=== PATIENT | female | born 1945 | race Caucasian/White ===

== ENCOUNTER 2018-04-04 10:42 | Emergency (ER) | payer MEDICARE ==
[2018-04-04 10:50] VITALS: BP 149/86
[2018-04-04 11:16] LABS: BILIRUBIN,URINE NEGATIVE (NEGATIVE); GLUCOSE, URINE (UA) NEGATIVE (NEGATIVE); KETONES,URINE (UA) NEGATIVE (NEGATIVE); LEUKOCYTE ESTERASE, URINE MODERATE (NEGATIVE); NITRITE,URINE NEGATIVE (NEGATIVE); OCCULT BLOOD,URINE LARGE (NEGATIVE); PROTEIN,URINE NEGATIVE (NEGATIVE); UROBILINOGEN,URINE 0.2 (NORMAL) E.U./dL (NORMAL)
[2018-04-04 11:17] LABS: CLARITY,URINE HAZY (CLEAR)
[2018-04-04 11:47] LABS: BACTERIA,URINE Few /HPF (None Seen); RBC,URINE 0-5 /HPF (0-5); SQUAMOUS EPITHELIAL CELL,UR FEW Squamous (<= Few)
--- NOTE | 2018-04-04 12:12 | ED Physician Documentation ---
PD HPI FEMALE - Stated complaint Stated Complaint: FEMALE - Chief complaint Chief Complaint: Abd Pain - History obtained from History obtained from: Patient - History of Present Illness Timing - onset: Yesterday Timing - details: Still present Associated symptoms: Back pain, Dysuria, Urinary frequency. No: Fever Similar symptoms before: Diagnosis (Recently treated for UTI), Treatment ( Finished a course of Cefuroxime five days ago.) - Additional information Additional information: The patient is a 72-year-old female who presents with dysuria and urgency of urination that started yesterday and has become worse today. She denies fever, abdominal pain, back pain, nausea or vomiting. She has a history of urinary tract infections, and finished a course of cefuroxime 5 days ago for UTI. She has history of multiple allergies to antibiotics, including ciprofloxacin, nitrofurantoin, and sulfa. Review of Systems Constitutional: denies: Fever Nose: denies: Congestion Throat: denies: Sore throat Cardiac: denies: Chest pain / pressure Respiratory: denies: Dyspnea, Cough GI: denies: Abdominal Pain, Nausea, Vomiting : reports: Dysuria, Frequency. denies: Hematuria, Discharge Skin: denies: Rash Musculoskeletal: denies: Back pain Neurologic: denies: Focal weakness, Numbness, Headache PD PAST MEDICAL HISTORY - Past Medical History Cardiovascular: Hypertension Endocrine/Autoimmune: HyPOthyroidism - Present Medications Home Medications: Ambulatory Orders Medication Instructions Recorded Confirmed ALPRAZolam [Alprazolam] 2 mg PO 04/04/18 Atenolol 100 mg PO 04/04/18 04/04/18 Beclomethasone Dipropionate [Qvar 10.6 gm IH 04/04/18 Redihaler] Cefpodoxime Proxetil 100 mg PO BID #14 tablet 04/04/18 Levothyroxine Sodium [Synthroid] 100 mcg PO 04/04/18 - Allergies Allergies/Adverse Reactions: Allergies Allergy/AdvReac Type Severity Reaction Status Date / Time bee venom protein (honey bee) Allergy Respiratory Verified 04/04/18 10:53 ciprofloxacin [From Cipro] Allergy Unknown Verified 04/04/18 10:53 nitrofurantoin Allergy Unknown Verified 04/04/18 10:52 Sulfa (Sulfonamide Allergy Edema Verified 04/04/18 10:51 Antibiotics) PD ED PE NORMAL - Vitals Vital signs reviewed: Yes (Mild hypertension initially.) - General General: Alert and oriented X 3, Well developed/nourished - HEENT HEENT: Atraumatic, Pharynx benign - Neck Neck: No adenopathy, No JVD - Cardiac Cardiac: RRR - Respiratory Respiratory: No respiratory distress, Clear bilaterally - Abdomen Abdomen: Soft, Non tender - Back Back: No CVA TTP - Derm Derm: No rash - Extremities Extremities: No edema, No calf tenderness / cord - Neuro Neuro: Alert and oriented X 3, No motor deficit, No sensory deficit Results - Vitals Vitals: Oxygen O2 Source Room air - Labs Labs: Microbiology 04/04/18 10:53 Urine Culture - Final Urine,Random 10-50,000 COLONIES/ML Polymicrobial growth including potential pathogens. This is suggestive of skin or other contamination. Laboratory Tests 04/04/18 10:53 Urine Color YELLOW Urine Clarity HAZY Urine pH 6.0 Ur Specific [place] <=1.005 Urine Protein NEGATIVE Urine Glucose (UA) NEGATIVE Urine Ketones NEGATIVE Urine Occult Blood LARGE H Urine Nitrite NEGATIVE Urine Bilirubin NEGATIVE Urine Urobilinogen 0.2 (NORMAL) Ur Leukocyte Esterase MODERATE H Urine RBC 0-5 Urine WBC >25 H Ur Squamous Epith Cells FEW Squamous Urine Bacteria Few Ur Microscopic Review INDICATED Urine Culture Comments INDICATED PD MEDICAL DECISION MAKING - ED course Complexity details: reviewed results, re-evaluated patient, considered differential, d/w patient ED course: The patient's presentation is most consistent with acute cystitis. Urinalysis is positive for leukocyte esterase, pyuria, and bacteriuria. Culture and sensitivity are pending. Her presentation does not suggest pyelonephritis or sepsis. Treatment in emergency department included administration of 500 mg orally. She is being discharged with prescription for cefpodoxime and Pyridium. I discussed with her the expected course of illness, antibiotic treatment and outpatient follow-up, as well as potentially worrisome signs or symptoms that should prompt reevaluation in the emergency department. - Sepsis Event Vital Signs: Oxygen O2 Source Room air Departure - Departure Disposition: 01 Home, Self Care Clinical Impression: Urinary tract infection Qualifiers: Urinary tract infection type: acute cystitis Hematuria presence: without hematuria Qualified Code(s): N30.00 - Acute cystitis without hematuria Condition: Stable Instructions: ED UTI Cystitis Female Prescriptions: Cefpodoxime Proxetil 100 mg PO BID #14 tablet Comments: Drink plenty of fluids, including cranberry juice. Take Cefpodoxime twice daily as prescribed. Follow up with your primary physician within 2 weeks. Call to schedule appointment. Return to the emergency department if you develop increasing abdominal pain, fever with shaking chills, persistent vomiting, or otherwise worsening symptoms. Discharge Date/Time: 04/04/18 12:21
[2018-04-04] MEDS: PHENAZOPYRIDINE 100 MG TABLET PO STA ×2 (12:14→12:17)
== END 2018-04-04 12:21 | disposition home or self-care (01) ==
LOC: ED 10:42
DX: N30.00 Acute cystitis without hematuria (principal); I10 Essential (primary) hypertension; E03.9 Hypothyroidism, unspecified
CPT/HCPCS: 81001; 87086; 99283; A9270; 81003

== ENCOUNTER 2018-04-10 10:07 | Emergency (ER) | payer MEDICARE ==
[2018-04-10 10:18] VITALS: BP 149/83
--- NOTE | 2018-04-10 10:25 | ED Physician Documentation ---
PD HPI FEMALE - Stated complaint Stated Complaint: FEMALE - Chief complaint Chief Complaint: General - History obtained from History obtained from: Patient - History of Present Illness Timing - onset: How many weeks ago (2) Timing - duration: Weeks (2) Timing - details: Gradual onset, Still present (she had UTI 2 weeks ago and Rx with cephalosporin. Did not fully improve and seen in ED. Given a different ceph. She states is still having dysuria c/w UTI. denies vaginal discharge.), Waxing and waning Associated symptoms: Dysuria, Urinary frequency. No: Fever, Back pain, Vaginal bleeding, Vaginal discharge Contributing factors: No: Exposed to STD Similar symptoms before: Diagnosis (UTI) Recently seen: Clinic (2 weeks ago in [place], with culture showing e.coli sensitive to most meds.), Emergency Dept (last week with UA showing some WBCs. Culture showed mixed sav.) Review of Systems Constitutional: denies: Fever, Chills, Myalgias Throat: denies: Sore throat Cardiac: denies: Chest pain / pressure Respiratory: denies: Dyspnea, Cough GI: reports: Nausea. denies: Abdominal Pain, Vomiting, Diarrhea : reports: Dysuria, Frequency. denies: Hematuria, Discharge Skin: denies: Rash PD PAST MEDICAL HISTORY - Past Medical History Cardiovascular: Hypertension Endocrine/Autoimmune: HyPOthyroidism - Present Medications Home Medications: Ambulatory Orders Medication Instructions Recorded Confirmed ALPRAZolam [Alprazolam] 2 mg PO 04/04/18 Atenolol 100 mg PO 04/04/18 04/04/18 Beclomethasone Dipropionate [Qvar 10.6 gm IH 04/04/18 Redihaler] Cefpodoxime Proxetil 100 mg PO BID #14 tablet 04/04/18 Levothyroxine Sodium [Synthroid] 100 mcg PO 04/04/18 Doxycycline Monohydrate 100 mg PO BID #14 tablet 04/10/18 Naproxen 375 mg PO BID #15 tablet 04/10/18 Phenazopyridine [Pyridium] 100 mg PO BID #15 tablet 04/10/18 - Allergies Allergies/Adverse Reactions: Allergies Allergy/AdvReac Type Severity Reaction Status Date / Time bee venom protein (honey bee) Allergy Respiratory Verified 04/10/18 10:19 ciprofloxacin [From Cipro] Allergy Unknown Verified 08/21/18 10:19 nitrofurantoin Allergy Unknown Verified 04/10/18 10:19 Sulfa (Sulfonamide Allergy Edema Verified 04/10/18 10:19 Antibiotics) PD ED PE NORMAL - Vitals Vital signs reviewed: Yes - General General: Alert and oriented X 3, No acute distress, Well developed/nourished - Cardiac Cardiac: RRR, No murmur - Respiratory Respiratory: Clear bilaterally - Abdomen Abdomen: Normal bowel sounds, Soft, Non tender, Non distended - Female Female : Deferred - Rectal Rectal: Deferred - Back Back: No CVA TTP - Derm Derm: Normal color, Warm and dry - Neuro Neuro: Alert and oriented X 3, No motor deficit, Normal speech Results - Vitals Vitals: Vital Signs - 24 hr 04/10/18 10:13 Temperature 36 C L Heart Rate 73 Respiratory 16 Rate Blood Pressure 149/83 H O2 Saturation 97 Oxygen O2 Source Room air - Labs Labs: Laboratory Tests 04/10/18 10:22 Urine Color YELLOW Urine Clarity CLEAR Urine pH 6.0 Ur Specific [place] <=1.005 Urine Protein NEGATIVE Urine Glucose (UA) NEGATIVE Urine Ketones NEGATIVE Urine Occult Blood NEGATIVE Urine Nitrite NEGATIVE Urine Bilirubin NEGATIVE Urine Urobilinogen 0.2 (NORMAL) Ur Leukocyte Esterase NEGATIVE Ur Microscopic Review NOT INDICATED Urine Culture Comments NOT INDICATED PD MEDICAL DECISION MAKING - ED course Complexity details: reviewed results (UA normal here. However still with symptoms and is just finishing abx, so partly treated. I got culture results from [facility], showing sensitivity to Tetracycline, so will change her abx. ), considered differential, d/w patient - Sepsis Event Vital Signs: Vital Signs - 24 hr 04/10/18 10:13 Temperature 36 C L Heart Rate 73 Respiratory 16 Rate Blood Pressure 149/83 H O2 Saturation 97 Oxygen O2 Source Room air Departure - Departure Disposition: Home, Self Care Clinical Impression: Dysuria Condition: Stable Record reviewed to determine appropriate education?: Yes Follow-Up: ULI FERNÁNDEZ MD [Primary Care Provider] - Prescriptions: Doxycycline Monohydrate 100 mg PO BID #14 tablet Naproxen 375 mg PO BID #15 tablet Phenazopyridine [Pyridium] 100 mg PO BID #15 tablet Comments: Drink lots of fluids. Change antibiotic to doxycycline twice daily for a week. Your urine test looked improved here but that does not exclude a persistent infection. Sometimes there is just inflammation left so use some naproxen and phenazopyridine twice daily for the next week as well. Follow-up with your primary care in the next 5-6 days if not improving. Discharge Date/Time: 04/10/18 12:05
[2018-04-10 10:32] LABS: BILIRUBIN,URINE NEGATIVE (NEGATIVE); GLUCOSE, URINE (UA) NEGATIVE (NEGATIVE); KETONES,URINE (UA) NEGATIVE (NEGATIVE); LEUKOCYTE ESTERASE, URINE NEGATIVE (NEGATIVE); NITRITE,URINE NEGATIVE (NEGATIVE); OCCULT BLOOD,URINE NEGATIVE (NEGATIVE); PROTEIN,URINE NEGATIVE (NEGATIVE); UROBILINOGEN,URINE 0.2 (NORMAL) E.U./dL (NORMAL)
[2018-04-10 10:34] LABS: CLARITY,URINE CLEAR (CLEAR)
[2018-04-10] MEDS ORDERED: DOXYCYCLINE 100 MG TABLET PO STA (11:44)
== END 2018-04-10 12:05 | disposition home or self-care (01) ==
LOC: ED 10:07
DX: R30.0 Dysuria (principal); I10 Essential (primary) hypertension; E03.9 Hypothyroidism, unspecified
CPT/HCPCS: 81003; 99283; A9270; 81001; 87086